=== PATIENT | male | born 1985 ===

== ENCOUNTER 2021-03-03 06:43 | Emergency (ER) | payer OTHER ==
[2021-03-03 06:48] VITALS: BP 114/70; PULSE 66; RESP 18; TEMP 98.3
[2021-03-03] MEDS ORDERED: ACETAMINOPHEN TAB 500 MG TAB PO STA (06:51)
--- NOTE | 2021-03-03 07:24 | XR ---
Right humerus and right elbow HISTORY: Trauma and pain 2 views the right humerus, 3 views the right elbow Bone mineralization, joint spaces and alignment are maintained with exception of some slight superior displacement of the distal clavicle in relation to the acromion on one view. No elbow joint effusion is evident. IMPRESSION: No fracture or dislocation. Correlate for possible acromioclavicular separation
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
== END 2021-03-03 08:35 | disposition home or self-care (01) ==
LOC: EC 06:43
DX: S43.101A Unspecified dislocation of right acromioclavicular joint, initial encounter (principal); V89.2XXA Person injured in unspecified motor-vehicle accident, traffic, initial encounter; Y92.410 Unspecified street and highway as the place of occurrence of the external cause
CPT/HCPCS: 99284